=== PATIENT | female | born 1965 | race Two or more races ===

== ENCOUNTER 2020-12-09 11:00 | Outpatient (CLI) | payer BC | END 2020-12-09 23:59 | disposition home or self-care (01) | LOC: WOU 11:00 | PROVIDERS: ATTEND Surgery | DX: C50.412 Malignant neoplasm of upper-outer quadrant of left female breast (principal); Z17.0 Estrogen receptor positive status [ER+] | CPT/HCPCS: G0463 ==

== ENCOUNTER 2020-12-20 10:20 | Outpatient (CLI) | payer BC | END 2020-12-20 23:59 | disposition home or self-care (01) | LOC: LAB 10:20 | PROVIDERS: ATTEND Surgery | DX: Z01.812 Encounter for preprocedural laboratory examination (principal); Z20.822 Contact with and (suspected) exposure to COVID-19 | CPT/HCPCS: C9803; U0003 ==

== ENCOUNTER 2020-12-22 10:42 | Outpatient (CLI) | payer BC ==
[2020-12-23] MEDS ORDERED: NITROGLYCERIN PACKET 1 GM PACKET ONE ×2 (07:11)
== END 2020-12-22 23:59 | disposition home or self-care (01) ==
LOC: NM 10:42
PROVIDERS: ATTEND Surgery
DX: C50.912 Malignant neoplasm of unspecified site of left female breast (principal)
CPT/HCPCS: 78195; A9541

== ENCOUNTER 2020-12-23 05:49 | Inpatient (IN) | payer BC ==
[~2020-12-23] VITALS: Ht 157.5 cm; Wt 88.5 kg
[2020-12-23 06:32] LABS: BILIRUBIN,URINE NEGATIVE (NEGATIVE); COLOR,URINE YELLOW (YELLOW); LEUKOCYTE ESTERASE ,URINE NEGATIVE (NEGATIVE); NITRITE, URINE NEGATIVE (NEGATIVE); PH,URINE 5.5 (5.0-8.0); PROTEIN,URINE NEGATIVE (NEGATIVE); UGLUCOSE NEGATIVE (NEGATIVE); UROBILINOGEN,URINE 0.2 EU/dL (0.2)
[2020-12-23] MEDS ORDERED: ANESTHESIA TRAY IN PYXIS 1 EA TRAY MC ONE (06:38)
[2020-12-23] MEDS ORDERED: CEFAZOLIN 1 GM ONE (06:38)
[2020-12-23] MEDS ORDERED: BUPIVACAINE 0.5 % PF 150 MG/30 ML VIAL ONE (06:38)
[2020-12-23] MEDS ORDERED: BACITRACIN 50000 UNITS/VIAL ONE (06:39)
[2020-12-23] MEDS ORDERED: GENTAMICIN 80 MG/2 ML VIAL ONE (06:46)
[2020-12-23] MEDS ORDERED: FENTANYL PF 100MCG/2ML AMPUL ONE ×2 (07:02→11:01)
[2020-12-23] MEDS ORDERED: HYDROMORPHONE INJ 2 MG/ML DISP.SYRIN ONE (07:02)
[2020-12-23] MEDS ORDERED: ROCURONIUM BROMIDE 50 MG/5 ML ONE (07:03)
[2020-12-23] MEDS ORDERED: MIDAZOLAM HCL 2 MG/2ML VIAL ONE (07:03)
[2020-12-23] MEDS ORDERED: METHYLENE BLUE 10 ML VIAL ONE (07:25)
[2020-12-23] MEDS ORDERED: HYDROMORPHONE 1 MG/1 ML DISP.SYRIN ONE (10:49)
[2020-12-23] MEDS ORDERED: oxyCODONE/APAP (5/325 MG) 1 UDTAB TABLET PO PRN (11:30)
[2020-12-23] MEDS ORDERED: IV D5/0.45 NACL 1,000 ML IV PRN (11:30)
[2020-12-23] MEDS ORDERED: MORPHINE SULFATE INJ 2 MG/ML DISP.SYRIN IV PRN ×2 (11:30→14:30)
[2020-12-23 12:30] VITALS: BP 144/90
[2020-12-23] MEDS ORDERED: ONDANSETRON HCL/PF 4 MG/2 ML VIAL IVP PRN (14:30)
[2020-12-23] MEDS ORDERED: ZOLPIDEM TARTRATE 5 MG TABLET PO PRN (14:30)
[2020-12-23] MEDS ORDERED: Z GUARD REMEDY 2 OZ OINT TP PRN (14:30)
[2020-12-23] MEDS ORDERED: HYDROCODONE/APAP 5/325MG TABLET PO PRN (14:30)
[2020-12-23] MEDS ORDERED: MAG HYDROX/AL HYDROX/SIMETH 30 ML UDC PO PRN (14:30)
[2020-12-23] MEDS ORDERED: MAGNESIUM HYDROXIDE 30 ML UDC PO PRN (14:30)
[2020-12-23] MEDS ORDERED: ACETAMINOPHEN 325 MG TABLET PO PRN (14:30)
--- NOTE | 2020-12-23 14:30 | NUR ---
PRINTED CIRCUIT BOARDS SOLDER LEVELER NOTE RECIEVED PT INTO ROOM 329-1. PT IS A/O X3 AND COOPERATIVE. PT IS [place] SPEAKING AND IS ABLE TO MAKE NEEDS KNOWN. NO COMPLAINTS OF PAIN AT THIS TIME. PT IS CURRENTLY ON 2L NC WITH NO SIGNS OF RESPIRATORY DISTRESS PRESENT. PT VITALS STABLE. PT HAD 1 BM IN THE MORNING. PT VOIDED ONCE. PT IS ABLE TO AMBULATE INDEPENDENTLY. SURGICAL STITCHES PRESENT FROM BILATERAL MASTECTOMY. SAFETY MEASURES IMPLEMENTED. SIDE RAILS RAISED. BED LOWERED. CALL LIGHT WITHIN REACH. WILL CONTINUE TO MONITOR.
[2020-12-23] MEDS ORDERED: LORAZEPAM INJ 2 MG/ML VIAL IV PRN (15:00)
[2020-12-23 16:00] VITALS: BP 123/79
[2020-12-23] MEDS: PANTOPRAZOLE 40 MG TABLET.DR PO SCH (17:10)
--- NOTE | 2020-12-23 19:30 | NUR ---
RN NOTE MANDEEP DRAIN FLUID DRAINED. LEFT IS 55 ML, RIGHT IS 50 ML.
--- NOTE | 2020-12-23 19:33 | NUR ---
RN CLOSING NOTE T IS A/O X3 AND COOPERATIVE. PT IS [place] SPEAKING AND IS ABLE TO MAKE NEEDS KNOWN. NO COMPLAINTS OF PAIN AT THIS TIME. PT IS CURRENTLY ON 2L NC WITH NO SIGNS OF RESPIRATORY DISTRESS PRESENT. PT VITALS STABLE. PT HAS BATHROOM PRIVILEGES. PT IS ABLE TO AMBULATE INDEPENDENTLY. SURGICAL STITCHES PRESENT FROM BILATERAL MASTECTOMY. SAFETY MEASURES IMPLEMENTED. SIDE RAILS RAISED. BED LOWERED. CALL LIGHT WITHIN REACH. ROUTINE MEDS GIVEN. REPORT GIVEN TO NIGHT NURSE.
[2020-12-23 20:00] VITALS: BP 117/80
--- NOTE | 2020-12-23 20:00 | NUR ---
RN NOTES RECEIVED PT. AWAKE ON BED,,A/OX4, AMBULATORY, S/P BILATERAL MASTECTOMY, PT HAS [address], DRAINING SEROSANGUINEOUS, CALL LIGHT WITHIN REACH, [id number], WILL CONTINUE TO MONITOR
--- NOTE | 2020-12-24 06:30 | NUR ---
RN NOTES pt. asked for pain meds- pERCOCET 1 TAB PO GIVEN ORDERED, V/S STABLE. MORNING CARE RENDERED, MANDEEP DRAINAGE IN PLACE AND EMPTIED BOTH , SIDERAILS UPX2, PT. NEEDS ATTENDED
[2020-12-24 07:08] LABS: BASOPHILS % (AUTO) 0.1 % (0.0-2.0); EOSINOPHILS % (AUTO) 0.5 % (0.0-6.0); HEMATOCRIT 33 % (33-45); HEMOGLOBIN 10.8 g/dL (11.5-14.8); LYMPHOCYTES # (AUTO) 1.6 /CMM (0.8-4.8); LYMPHOCYTES % (AUTO) 26.4 % (20.0-44.0); MEAN CORPUSCULAR HGB CONC 33 g/dl (31.0-36.0); MEAN CORPUSCULAR VOLUME 94 fL (82-100); MONOCYTES # (AUTO) 0.6 /CMM (0.1-1.30); NEUTROPHILS # (AUTO) 3.9 /CMM (1.8-8.9); PLATELET COUNT (AUTO) 189 /CMM (150-450); RED BLOOD CELL COUNT(AUTO) 3.49 MIL/uL (4.0-5.2); WHITE BLOOD COUNT (AUTO) 6.2 K/uL (4.3-11.0)
--- NOTE | 2020-12-24 07:30 | NUR ---
MS/RN Opening note Patient received from cuff presser. A/O X4, vital signs stable, stating that current pain level is 4/10, given percocet at 6am. All questions and concerns addressed, for possible discharge to home later today once cleared by Dr Ramey. Call light within reach, bed in low setting, side rails X2 in upright position, brakes locked. Will continue to monitor and ensure safety.
[2020-12-24 07:46] LABS: CALCIUM, SERUM 8.7 mg/dL (8.5-10.1); MAGNESIUM 1.8 mg/dL (1.8-2.4); PHOSPHORUS 4.4 mg/dL (2.5-4.9); POTASSIUM 3.6 mmol/L (3.5-5.1)
[2020-12-24 07:53] LABS: THYROID STIMULATING HORMONE 0.691 uIU/mL (0.358-3.74)
[2020-12-24 08:00] VITALS: BP 106/74
--- NOTE | 2020-12-24 09:37 | NUR ---
MS/RN S/B Dr Ramey Seen by Dr Ramey - patient to be discharged to home today with follow up in office in two weeks (01/06/2021). Prescription written and porivded to patient with copy placed in chart. Exit care prepared, awaiting discharge order from Aditya Mahoney.
[2020-12-24] MEDS: PANTOPRAZOLE 40 MG TABLET.DR PO SCH (10:31)
--- NOTE | 2020-12-24 12:17 | NUR ---
MS/inpatient coder Patient discharged to home in stable condition. All personal belongings returned to patient and signed for on belongings list. Educated as to how to care for and empty MANDEEP drain, stated understanding and returned demonstration. Provided with measuring cups, instructed to record output and to inform MD if no output or large volume measured. Provided with prescription for percocet and bactrim, instructed as to what each medication was for and possible side effects, patient again stated understanding. Heplock removed, pressure dressing applied, and name bands removed. Escorted to main lobby by RN, provided transport.
== END 2020-12-24 11:00 | disposition home or self-care (01) | DRG 581 ==
LOC: DS 05:49 → MED 14:45
PROVIDERS: ADMIT Nurse Practitioner Acute Care; ATTEND Nurse Practitioner Acute Care
PROC: 0HTV0ZZ Resection of Bilateral Breast, Open Approach (ICD-10-PCS; principal; 2020-12-23)
PROC: 07B60ZX Excision of Left Axillary Lymphatic, Open Approach, Diagnostic (ICD-10-PCS; 2020-12-23)
DX: C50.912 Malignant neoplasm of unspecified site of left female breast (principal); Z92.21 Personal history of antineoplastic chemotherapy; E66.9 Obesity, unspecified; Z68.35 Body mass index [BMI] 35.0-35.9, adult
CPT/HCPCS: 36415; 80048-TC; 80061-TC; 83735-TC; 84100-TC; 84443-TC; 84703-TC; 85025-TC; 86850-TC; 88307-TC; 88309-TC; 88331-TC; 88360; G0378; J0330; J0690; J1100; J1170; J1580; J2250; J2405; J2704; J3010; J3490; Q9968

== ENCOUNTER 2021-01-06 10:55 | Outpatient (CLI) | payer BC | END 2021-01-06 23:59 | disposition home or self-care (01) | LOC: WOU 10:55 | PROVIDERS: ATTEND Surgery | DX: Z48.3 Aftercare following surgery for neoplasm (principal); C50.412 Malignant neoplasm of upper-outer quadrant of left female breast; Z90.13 Acquired absence of bilateral breasts and nipples; Z17.1 Estrogen receptor negative status [ER-] | CPT/HCPCS: G0463 ==

== ENCOUNTER 2021-08-16 08:50 | Outpatient (CLI) | payer BC | END 2021-08-16 23:59 | disposition home or self-care (01) | LOC: WOU 08:50 | PROVIDERS: ATTEND Surgery | DX: C50.412 Malignant neoplasm of upper-outer quadrant of left female breast (principal); Z90.13 Acquired absence of bilateral breasts and nipples; Z87.891 Personal history of nicotine dependence | CPT/HCPCS: G0463 ==